=== PATIENT | male | born 1975 | race Caucasian/White ===

== ENCOUNTER 2018-04-17 11:59 | Emergency (ER) | payer OTHER ==
[~2018-04-17] VITALS: Ht 185.4 cm; Wt 111.1 kg
[2018-04-17 12:00] VITALS: Ht 185.4 cm; Wt 111.1 kg
[2018-04-17 12:36] LABS: microscopic required? NO
[2018-04-17 12:39] LABS: BASOPHIL % 0.4 % (0-2); PLATELET COUNT 252 x10^3mcL (130-400); RED CELL DISTRIBUTION WIDTH 13.5 % (11.5-14.5)
[2018-04-17 12:40] LABS: urine erythrocyte NEGATIVE (NEGATIVE)
[2018-04-17 12:57] LABS: CALCIUM 8.9 mg/dL (8.5-10.1); CARBON DIOXIDE 27.3 mmol/L (21-32); CHLORIDE SERUM 105 mmol/L (98-107); GFR1 > 60 mL/min; GLUCOSE SERUM 103 mg/dL (74-106); POTASSIUM SERUM 3.9 mmol/L (3.5-5.1); SODIUM SERUM 143 mmol/L (136-145)
[2018-04-17 13:01] LABS: ALKALINE PHOSPHATASE 79 U/L (46-116); ALT/SGPT 63 U/L (16-63); AST/SGOT 29 U/L (15-37); BILIRUBIN TOTAL 0.44 mg/dL (0.20-1.00); HDL CHOLESTEROL 48 mg/dL (40-60); LIPASE 189 IU/L (73-393); TOTAL PROTEIN, SERUM 7.7 g/dL (6.4-8.2); TRIGLYCERIDES 120 mg/dL (<150)
[2018-04-17 13:02] LABS: CHOLESTEROL 221 mg/dL (<200); CHOLESTEROL/HDL RATIO 4.6
[2018-04-17 13:08] LABS: T3 TOTAL 0.92 ng/mL
[2018-04-17 13:15] LABS: FREE T4 0.9 ng/dL (0.76-1.46); FREE THYROXINE INDEX 2.4 ug/dL (1.4-4.5); T4(THYROXINE) 6.9 ug/dL (4.7-13.3)
[2018-04-17 13:58] VITALS: BP 132/87
== END 2018-04-17 13:59 | disposition home or self-care (01) ==
LOC: ED 11:59
PROVIDERS: Specialist
DX: R00.2 Palpitations (principal); Z90.89 Acquired absence of other organs
CPT/HCPCS: 36415; 83880; 84439

== ENCOUNTER 2018-05-06 21:49 | Emergency (ER) | payer OTHER ==
[~2018-05-06] VITALS: Ht 185.4 cm; Wt 113.4 kg
[2018-05-06 22:12] VITALS: BP 132/83
== END 2018-05-06 22:12 | disposition home or self-care (01) ==
LOC: ED 21:49
DX: S61.431A Puncture wound without foreign body of right hand, initial encounter (principal); W26.8XXA Contact with other sharp object(s), not elsewhere classified, initial encounter; Y93.89 Activity, other specified; Y92.89 Other specified places as the place of occurrence of the external cause; Y99.8 Other external cause status

== ENCOUNTER 2019-02-03 14:06 | Emergency (ER) | payer OTHER ==
[~2019-02-03] VITALS: Ht 188 cm; Wt 108.9 kg
[2019-02-03 14:09] VITALS: BP 135/80; Ht 188 cm; Wt 108.9 kg
== END 2019-02-03 15:28 | disposition home or self-care (01) ==
LOC: ED 14:06
DX: M54.6 Pain in thoracic spine (principal)
CPT/HCPCS: 20552; J2001; J3301; J3490

== ENCOUNTER → 2019-02-16 | Outpatient (CLI) | payer OTHER ==
[~2019-02-16] MED LIST: LOPRESSOR50 M1 PO
[2019-02-16 14:45] LABS: BASOPHIL % 0.2 % (0-2); PLATELET COUNT 306 x10^3mcL (130-400); RED CELL DISTRIBUTION WIDTH 12.9 % (11.5-14.5)
[2019-02-16 15:08] LABS: CARBON DIOXIDE 30.6 mmol/L (21-32); CHLORIDE SERUM 103 mmol/L (98-107); GFR1 > 60 mL/min; GLUCOSE SERUM 98 mg/dL (74-106); POTASSIUM SERUM 4.3 mmol/L (3.5-5.1); SODIUM SERUM 141 mmol/L (136-145)
[2019-02-17 05:13] LABS: MUMPS AB IGG <9.0 AU/mL (Immune >10.9); RUBEOLA AB IGG <25.0 AU/mL (Immune >29.9)
== END | disposition home or self-care (01) ==
LOC: LB 14:07
PROVIDERS: Internal Medicine
PROC: BR27ZZZ Computerized Tomography (CT Scan) of Thoracic Spine (ICD-10-PCS; principal; 2019-02-16)
PROC: BR29ZZZ Computerized Tomography (CT Scan) of Lumbar Spine (ICD-10-PCS; 2019-02-16)
PROC: BR20ZZZ Computerized Tomography (CT Scan) of Cervical Spine (ICD-10-PCS; 2019-02-16)
DX: Z00.00 Encounter for general adult medical examination without abnormal findings (principal); M53.9 Dorsopathy, unspecified; M54.10 Radiculopathy, site unspecified
CPT/HCPCS: 86787

== ENCOUNTER 2019-03-03 12:32 | Emergency (ER) | payer OTHER ==
[~2019-03-03] VITALS: Ht 185.4 cm; Wt 113.4 kg
[2019-03-03 12:43] VITALS: Ht 185.4 cm; Wt 113.4 kg
[2019-03-03 13:57] LABS: microscopic required? NO
[2019-03-03 14:10] LABS: CALCIUM 8.7 mg/dL (8.5-10.1); CARBON DIOXIDE 23.2 mmol/L (21-32); CHLORIDE SERUM 106 mmol/L (98-107); GFR1 > 60 mL/min; GLUCOSE SERUM 110 mg/dL (74-106); POTASSIUM SERUM 3.8 mmol/L (3.5-5.1); SODIUM SERUM 141 mmol/L (136-145)
[2019-03-03 14:11] LABS: BASOPHIL % 0.3 % (0-2); PLATELET COUNT 258 x10^3mcL (130-400); RED CELL DISTRIBUTION WIDTH 13.3 % (11.5-14.5)
[2019-03-03 14:14] LABS: ALBUMIN 3.8 g/dL (3.4-5.0); ALKALINE PHOSPHATASE 56 U/L (46-116); ALT/SGPT 37 U/L (16-63); AST/SGOT 10 U/L (15-37); BILIRUBIN TOTAL 0.45 mg/dL (0.20-1.00); MAGNESIUM 2.2 mg/dL (1.8-2.4); PHOSPHOROUS 2.7 mg/dL (2.5-4.9); TOTAL PROTEIN, SERUM 7.2 g/dL (6.4-8.2)
[2019-03-03 14:18] LABS: T3 TOTAL 0.84 ng/mL
[2019-03-03 14:27] LABS: FREE T4 1.13 ng/dL (0.76-1.46); FREE THYROXINE INDEX 2.4 ug/dL (1.4-4.5); T4(THYROXINE) 6.7 ug/dL (4.7-13.3)
[2019-03-03 14:33] LABS: C REACTIVE PROTEIN < 0.2 mg/dL (<=0.9)
[2019-03-03 14:36] LABS: urine erythrocyte NEGATIVE (NEGATIVE)
[2019-03-03 16:54] VITALS: BP 111/77
[2019-03-04 04:06] LABS: RAPID PLASMA REAGIN Non Reactive (Non Reactive)
== END 2019-03-03 16:54 | disposition home or self-care (01) ==
LOC: ED 12:32
PROVIDERS: Emergency Medicine
DX: E86.0 Dehydration (principal); R53.1 Weakness; R51 Headache; M79.10 Myalgia, unspecified site
CPT/HCPCS: 84439; J7030

== ENCOUNTER 2019-03-07 16:22 | Inpatient (IN) | payer OTHER ==
[~2019-03-07] VITALS: Ht 185.4 cm; Wt 108.9 kg
[2019-03-07 16:28] VITALS: Ht 185.4 cm; Wt 108.9 kg
--- NOTE | 2019-03-07 16:45 | NUR ---
PT AMBULATES TO ROOM OB [facility] C/O INTERMITTENT GENERALIZED WEAKNESS/NUMBNESS/TINGLING TO ANDER LOWER EXTREMITIES AND UPPER EXTREMITIES. REPORT TRAVEING TO [place] 1 MONTH AGO AND WHEN HE CAME BACK, HIS SYMPTOMS STARTED. OCCASIONAL HEADACHE-GENERAL. DENIES ANY CHANGES IN VISION. DENIES ANY RECENT FEVERS/CHILLS. NO NUCCHAL RIGIDITY. PT AAOX4, IN NAD, DENIES PERIOODS OF CONFUSION. RESP EVEN AND UNLABORED, IN NAD. REPORTS MILD NAUSEA, NO VOPMITING. ABD LARGE, SOFT, NT TO PALPATION, DENIES DYSURIA. NO OTHER MEMBER AT HOME WITH SIMILIAR SYMPTOMS. MARTY W/D/IGiuseppe MCKINLEY FOR ER MD EVALUATION.
[2019-03-07 16:54] LABS: BASOPHIL % 0.4 % (0-2); PLATELET COUNT 300 x10^3mcL (130-400); RED CELL DISTRIBUTION WIDTH 13.1 % (11.5-14.5)
[2019-03-07 17:01] LABS: CALCIUM 8.6 mg/dL (8.5-10.1); CHLORIDE SERUM 106 mmol/L (98-107); CREATININE SERUM 0.9 mg/dL (0.7-1.3); GFR1 > 60 mL/min; GLUCOSE SERUM 106 mg/dL (74-106); POTASSIUM SERUM 3.7 mmol/L (3.5-5.1); SODIUM SERUM 143 mmol/L (136-145)
[2019-03-07 17:06] LABS: ALKALINE PHOSPHATASE 51 U/L (46-116); ALT/SGPT 30 U/L (16-63); AST/SGOT 12 U/L (15-37); BILIRUBIN TOTAL 0.6 mg/dL (0.20-1.00); MAGNESIUM 1.9 mg/dL (1.8-2.4); TOTAL PROTEIN, SERUM 7.2 g/dL (6.4-8.2)
--- NOTE | 2019-03-07 17:58 | NUR ---
NO ACUTE CHNAGES IN CONDITON, IV NS INFUSING ORDERED, VIA PUMP. VSS.
--- NOTE | 2019-03-07 18:45 | NUR ---
PT MEDICATED ORDERED AND TAKEN TO MRI ORDERED.
--- NOTE | 2019-03-07 19:13 | NUR ---
PT IN OB AT THIS TIME. RECIEVED REPORT FROM MICKY LASSITER.
--- NOTE | 2019-03-07 19:49 | NUR ---
PT UNABLE TO COMPLETE MRI DUE TO MACHINE MALFUNCTION. DR. MITCHELL AWARE. PT POSITIONED TO COMFORT. NO ACUTE DISTRESS NOTED. PT NEEDS MET AT THIS TIME.
[2019-03-07] MEDS ORDERED: LOPRESSOR50 M1 PO (21:26)
--- NOTE | 2019-03-07 21:49 | NUR ---
REPORT GIVEN TO LEXA VÁZQUEZ TO ASSUME CARE OF PT.
--- NOTE | 2019-03-07 22:01 | NUR ---
PT TRANSFERRED TO MED/SURG BED 260B VIA [facility] WITH EMT ANIRUDH AND RN FLAVIO AT PT SIDE. PT A&OX4,NO ACUTE DISTRESS NOTED, RESP EVEN ANDU NLABORED, TRANSFERRED WITHOUT INCIDENCE.
[2019-03-07 22:19] VITALS: BP 126/95
--- NOTE | 2019-03-07 22:40 | NUR ---
RECEIVED PT FROM ER, PT ADMIT FOR WEAKNESS, PT IS A/O X4, VERBAL RESPONSIVE, ABLE TO TELL WHAT HE NEEDS. PT C/O GENERALIZED WEAKNESS AND NUMBNESS WHOLE BODY. ON AND OFF FOR 1 MONTH. BUT DENY ANY NUMBNESS AT THIS MOMENT, LUNG SOUND CLEAR BILATERAL,NO COUGH, NO SOB, PT DENY ANY CHEST PAIN OR DISCOMFORT, BOWEL SOUND PRESENT ALL 4 QUADRANTS, NO DISTENTION, NO TENDER. PEDAL PULSE PRESENT BOTH FEET, NO EDEMA, IV AT RIGHT AC, NO LEAKING, NO INFILTRAITON, ALL ADLS ASSIST, ALL NEED MET, CALL LIGHT IN REACH, WILL CONTINUE TO MONITOR.
[2019-03-08 06:06] VITALS: BP 101/67
--- NOTE | 2019-03-08 06:07 | NUR ---
PATIENT RESTING IN BED AT THIS TIME. RESPIRATION EVEN AND UNLABORED, ON ROOM AIR. NO FURTHER COMPLAINTS NOTED. SALINE LOCK TO RIGHT ANTECUBITAL AREA PATENT AND INTACT. ASSISTED WITH NEEDS. SAFETY OBSERVED. PLACED BED IN THE LOWEST POSITION. PLACED CALL LIGHT WITHIN REACH AT ALL TIMES.
[2019-03-08 06:15] LABS: BASOPHIL % 0.3 % (0-2); PLATELET COUNT 283 x10^3mcL (130-400); RED CELL DISTRIBUTION WIDTH 13.5 % (11.5-14.5)
[2019-03-08 06:39] LABS: T4(THYROXINE) 7.7 ug/dL (4.7-13.3)
--- NOTE | 2019-03-08 07:15 | NUR ---
RECEIVED PT FROM HOLISTIC PULSER NURSE. PT RESTING IN BED, AOX4, RESP E/U ON RA. C/O MILD NUMBNESS AND TINGLING TO LEGS AND FEET W/ INTERMITTENT ONSET, OTHERWISE NO ACUTE DISTRESS NOTED. DENIES HEADACHE OR DIZZINESS. SALINE LOCK TO RAC W/ NO ERYTHEMA OR EDEMA. BED IN LOWEST POSITION AND CALL LIGHT WITHIN REACH. WILL CONTINUE TO MONITOR.
[2019-03-08 09:09] LABS: ERYTHROCYTE SED RATE 5 mm/hr (0-15)
[2019-03-08 09:13] VITALS: BP 106/65
--- NOTE | 2019-03-08 13:20 | NUR ---
PT RESTING IN BED, AOX4, RESP E/U ON RA. PT DENIES NUMBNESS OR TINGLING TO BLE AT THIS TIME, NO HEADACHE OR DIZZINESS NOTED. BED IN LOWEST POSITION AND CALL LIGHT WITHIN REACH. WILL CONTINUE TO MONITOR.
--- NOTE | 2019-03-08 16:34 | NUR ---
PT REPORTED IV TO RAC WAS ACCIDENTALLY DISLODEGED, IV CATH INTACT. GAUZE DRESSING APPLIED. NEW 20G IV INSERTED TO R HAND, PATENT AND INTACT. WILL CONTINUE TO MONITOR.
--- NOTE | 2019-03-08 18:10 | NUR ---
PT RESTING IN BED, AOX4, RESP E/U ON RA. PT DENIES NUMBNESS OR TINGLING BUT REPORTED LEGS FELT HEAVY AND WEAK, STILL ABLE TO AMBULATE, OTHERWISE NO SIGNS OF ACUTE DISTRESS. SALINE LOCK TO R HAND W/ NO ERYTHEMA OR EDEMA. BED IN LOWEST POSITION AND CALL LIGHT WITHIN REACH. WILL ENDORSE TO ONCOMING NURSE.
[2019-03-08 18:40] VITALS: BP 108/77
--- NOTE | 2019-03-08 19:22 | NUR ---
RECEIVED PT FROM PREVIOUS SHIFT. PT RECEIVING MRI AT THIS TIME.
[2019-03-08 20:18] VITALS: BP 115/78
--- NOTE | 2019-03-09 00:35 | NUR ---
PT RESTING IN NO ACUTE DISTRESS. RR EVEN AND UNLABORED. CALL LIGHT WITHIN REACH, BED IN LOW POSITION. WILL CONTINUE TO MONITOR.
[2019-03-09 04:59] VITALS: BP 124/79
[2019-03-09 06:10] LABS: RAPID PLASMA REAGIN Non Reactive (Non Reactive)
--- NOTE | 2019-03-09 06:16 | NUR ---
NO ACUTE CHANGES THROUGHOUT SHIFT. PT A/OX4. DENIES PAIN, DENIES SOB. CALL LIGHT WITHIN REACH, BED IN LOW POSITION. WILL CONTINUE TO MONITOR.
--- NOTE | 2019-03-09 07:05 | NUR ---
RECEIVED PT FROM RESIDENT CARE DIRECTOR NURSE. PT RESTING IN BED, AOX4, RESP E/U ON RA. NO ACUTE DISTRESS NOTED AT THIS TIME. SALINE LOCK TO R HAND W/ NO ERYTHEMA OR EDEMA. BED IN LOWEST POSITION AND CALL LIGHT WITHIN REACH. WILL CONTINUE TO MONITOR.
[2019-03-09 09:08] LABS: RHEUMATOID ARTHRITIS FACTOR <10.0 IU/mL (0.0-13.9)
[2019-03-09 09:17] VITALS: BP 123/79
--- NOTE | 2019-03-09 11:56 | NUR ---
PT RESTING IN BED, AOX4, RESP E/U ON RA. PT DENIES HEADACHE, DIZZINESS, NUMBNESS OR TINGLING AT THIS TIME. NO ACUTE DISTRESS NOTED. BED IN LOWEST POSITION AND CALL LIGHT WITHIN REACH. WILL CONTINUE TO MONITOR.
[2019-03-09 15:25] VITALS: BP 123/79
--- NOTE | 2019-03-09 17:09 | NUR ---
PT DISCHARGED. REVIEWED VISIT SUMMARY, EDUCATIONAL PACKET AND FOLLOW UP INSTRUCTIONS W/ PT. PT AOX4, RESP E/U, VS STABLE, DENIES PAIN AT THIS TIME. IV TO R HAND REMOVED, CATH INTACT, GAUZE DRSSING APPLIED. PT AMBULATORY TO PANCHO, ESCORTED TO LOBBY BY LEXA HA W/ NO ACUTE INCIDENCE.
== END 2019-03-09 17:08 | disposition home or self-care (01) | DRG 74 ==
LOC: ED 16:22 → MU 21:17
PROVIDERS: Emergency Medicine; ADMIT Internal Medicine
DX: G62.9 Polyneuropathy, unspecified (principal); G71.00 Muscular dystrophy, unspecified; M54.10 Radiculopathy, site unspecified
CPT/HCPCS: 86431; G0378; J2060; J2405; J7030; Q0092

== ENCOUNTER → 2020-06-19 | Outpatient (CLI) | payer OTHER ==
[2020-06-19 13:29] LABS: ALBUMIN 4.3 g/dL (3.4-5.0); ALKALINE PHOSPHATASE 70 U/L (46-116); ALT/SGPT 62 U/L (16-63); AST/SGOT 21 U/L (15-37); BILIRUBIN TOTAL 0.6 mg/dL (0.20-1.00); CALCIUM 8.6 mg/dL (8.5-10.1); CARBON DIOXIDE 28.3 mmol/L (21-32); CHLORIDE SERUM 100 mmol/L (98-107); GFR1 > 60 mL/min; GLUCOSE SERUM 103 mg/dL (74-106); POTASSIUM SERUM 3.8 mmol/L (3.5-5.1); SODIUM SERUM 133 mmol/L (136-145); TOTAL PROTEIN, SERUM 7.7 g/dL (6.4-8.2)
== END | disposition home or self-care (01) ==
LOC: LB 12:56
PROVIDERS: ATTEND Internal Medicine
DX: E11.9 Type 2 diabetes mellitus without complications (principal)